=== PATIENT | female | born 1965 | race Caucasian/White ===

== ENCOUNTER 2016-12-24 22:57 | Emergency (ER) | payer OTHER ==
[~2016-12-24 22:57] MED LIST: CITA-48 PO; DEPO150I IM; DOXE50CA3 PO; DOXY100T PO; EPIP0.3I IM; GABA100C4 PO; HYDR50TA94 PO; IPRAAER INH; LAMO150 PO; PRAZ5CAP16 PO; PRED50 PO; SALI1SPR8; SIMV20 PO
[2016-12-24 23:00] VITALS: BP 124/75; PULSE 83; RESP 18; TEMP 99.1; O2SAT 98
== END 2016-12-24 23:40 | disposition left against medical advice (07) ==
LOC: NED 22:57
DX: Z53.21 Procedure and treatment not carried out due to patient leaving prior to being seen by health care provider (principal)
CPT/HCPCS: 99281

== ENCOUNTER 2017-09-16 21:26 | Emergency (ER) | payer OTHER ==
[~2017-09-16] VITALS: Ht 162.6 cm; Wt 72.5 kg
[2017-09-16 23:01] VITALS: BP 131/70; PULSE 98; RESP 16; TEMP 98.6; O2SAT 97
[2017-09-16] MEDS ORDERED: LIDOCAINE 1%/EPINEPHrine 1:100,000 SOLN 20 ML VIAL INFIL ONE (23:15)
[2017-09-16] MEDS ORDERED: LIDOCAINE 1%/EPINEPHrine 1:100,000 SOLN 30 ML VIAL ONE (23:16)
--- NOTE | 2017-09-16 23:16 | PD ---
HPI Chief Complaint: Skin Problem Time Seen by Provider: 23:05 Travel History International Travel<30 days: No Contact w/Intl Traveler<30days: No Traveled to known affect area: No History of Present Illness HPI 52-year-old left-hand dominant female presents for evaluation of area of skin redness and soft tissue swelling on the volar left wrist. Symptoms started yesterday, worsened today, prompted evaluation. She tried drinking at home with a razor but was unsuccessful. She reports a throbbing sensation which is worse with palpation. Denies any drainage. She does not recall any injuries, puncture wounds, bug bites the left wrist. She does have a remote history of IV drug use but reports that she has not used in 4-5 years. Denies fevers or chills. She has no other complaints at this time. PFSH Past Medical History Arthritis: Yes (OA) Cancer: Yes (CERVICAL CANCER) Cardiovascular Problems: Yes (HYPOTENSION) Chemotherapy: Yes Cerebrovascular Accident: Yes (2009) Diminished Hearing: No Insomnia: Yes Musculoskeletal: Yes (CHRONIC BACK PAIN AND LIMB ACHES) Psychiatric: Yes (CLUSTER B PERSONALITY DISORDER, SOMATIZATION, PTSD) Reproductive: Yes (H/O MALIGNANT NEOPLASM GENITAL ORGANS) Respiratory: Yes (ASTHMA) Integumentary: Yes (H/O OPIOD DEPENDANCE AND COCCAINE ABUSE) Immunizations Current: Yes Migraines: Yes ?: Not : 2 Para: 2 Past Surgical History Abdominal Surgery: Yes (peritonitis) Appendectomy: Yes Section: Yes (X2) Social History Alcohol Use: Yes (RARELY) Tobacco Use: Yes (3/4 PPD) Substance Use: No (HX) Allergies-Medications (Allergen,Severity, Reaction): Coded Allergies: Influenza Virus Vaccines (Unverified Allergy, Severe, Anaphylaxis, 09/16/17 ) acetaminophen (Unverified Allergy, Severe, Cardiac Arrest, 09/16/17) atropine (Unverified Allergy, Severe, VOMITING, 09/16/17) basil (Unverified Allergy, Severe, Anaphylaxis, 09/16/17) cephalexin (Verified Allergy, Severe, 09/16/17) PAIN hyoscyamine (Unverified Allergy, Severe, VOMITING, 09/16/17) levetiracetam (Unverified Allergy, Severe, Nausea/Vomiting, 09/16/17) levofloxacin (Unverified Allergy, Severe, Rash, 09/16/17) ondansetron (Unverified Allergy, Severe, ABD, 09/16/17) paroxetine (Unverified Allergy, Severe, Rash, 09/16/17) phenobarbital (Unverified Allergy, Severe, VOMITING, 09/16/17) pneumococcal vaccine (Unverified Allergy, Severe, 09/16/17) propoxyphene (Unverified Allergy, Severe, Cardiac Arrest, 09/16/17) scopolamine (Unverified Allergy, Severe, VOMITING, 09/16/17) tea tree (Unverified Allergy, Severe, 09/16/17) azithromycin (Unverified Allergy, Intermediate, URTICARIA, 09/16/17) celecoxib (Unverified Allergy, Intermediate, 09/16/17) metronidazole (Unverified Allergy, Intermediate, Rash, 09/16/17) egg (Unverified Allergy, Unknown, 09/16/17) Reported Meds & Prescriptions Reported Meds & Active Scripts Active Clindamycin (Clindamycin HCl) 300 Mg Cap 300 Mg PO TID 10 Days Bactrim DS (Sulfamethoxazole-Trimethoprim) 800-160 Mg Tab 1 Tab PO BID Doxycycline Hyclate 100 mg (Doxycycline Hyclate) 100 Mg Tab 100 Mg PO BID Deltasone 50 Mg Tab (Prednisone) 50 Mg Tab 50 Mg PO DAILY Epipen (Epinephrine HCl) 0.3 Mg Inj 0.3 Mg IM ONCE GIVE IM IN THIGH, MAY REPEAT IF NEEDED Reported Citalopram Hydrobromide 40 Mg Tab 40 Mg PO DAILY [place] (Sodium Chloride) 45 Ml Naspr 2 [place] NA TID Combivent Respimat (Albuterol/Ipratropium) Respimat Aer 1 Puff INH QID PRN Depo-Provera Contraceptive (Medroxyprogesterone Acetate) 150 Mg/Ml Susp 150 Mg IM Q90D Simvastatin 20 mg (Simvastatin) 20 Mg Tab 20 Mg PO HS Lamictal (Lamotrigine) 150 Mg Tab 300 Mg PO HS Hydroxyzine Hcl (Hydroxyzine HCl) 50 Mg Tab 50 Mg PO TID PRN Prazosin Hcl (Prazosin HCl) 5 Mg Cap 5 Mg PO HS Doxepin 50 mg (Doxepin HCl) 50 Mg Cap 50 Mg PO HS PRN Gabapentin 100 Mg Cap 200 Mg PO TID Review of Systems Except as stated in HPI: all other systems reviewed are Neg Physical Exam Narrative GENERAL: Well-nourished female no acute distress SKIN: Warm and dry. 2 cm fluctuant abscess noted to the left wrist. Fresh needle track philippe are noted in both arms. There is no significant erythema or proximal streaking or axillary lymphadenopathy. HEAD: Atraumatic. Normocephalic. EYES: Pupils equal and round. No scleral icterus. No injection or drainage. ENT: No nasal bleeding or discharge. Mucous membranes pink and moist. NECK: Trachea midline. No JVD. CARDIOVASCULAR: Regular rate and rhythm. No murmur appreciated. RESPIRATORY: No accessory muscle use. Clear to auscultation. Breath sounds equal bilaterally. MUSCULOSKELETAL: No obvious deformities. Skin as noted above. NEUROLOGICAL: Awake and alert. No obvious cranial nerve deficits. Motor grossly within normal limits. Normal speech. Data Data Last Documented VS Vital Signs Date Time Temp Pulse Resp B/P (MAP) Pulse Ox O2 Delivery O2 Flow Rate FiO2 09/16/17 23:01 98.6 98 16 131/70 (90) 97 Room Air Orders Orders Lidocai-Epi 1%-1:100,000 Inj (Xylocaine- (09/16/17 23:15) Wound Culture And Gram Stain (09/16/17 23:09) Lidocai-Epi 1%-1:100,000 Inj (Xylocaine- (09/16/17 23:16) Clindamycin (Cleocin) (09/16/17 23:45) Sulfamet-Trimeth Ds 800-160 Mg (Bactrim (09/16/17 23:45) Ed Discharge Order (09/16/17 23:31) [facility] Medical Decision Making Medical Screen Exam Complete: Yes Emergency Medical Condition: Yes Medical Record Reviewed: Yes Differential Diagnosis Abscess, cellulitis, infected cyst, lymphangitis Narrative Course Examination reveals a cutaneous abscess on the volar aspect of the left wrist. Plan is for incision and drainage, she verbally consents. Wound culture will be obtained. She will be started empirically on Bactrim and clindamycin. Procedures Procedure Narrative INCISION AND DRAINAGE OF ABSCESS: The area was prepped and was sterilely draped. A subcutaneous wheal of 1% Xylocaine with epinephrine with a total number 6 mL was used to anesthetize the area. The area was properly anesthetized. A number 11 scalpel was used to make a 1.5-cm incision across the area of the abscess. Cultures were obtained. The abscess was drained an irrigated with normal saline. Diagnosis Primary Impression: Abscess of left arm Additional Instructions: Warm compresses or soaks several times a day 15 minutes at a time. Antibiotics as prescribed. Return for evidence of worsening infection. Med/Other Pt SpecificInfo: Prescription(s) given, Wound Care Scripts Clindamycin (Clindamycin) 300 Mg Cap 300 MG PO TID for Infection for 10 Days, #30 CAP 0 Refills Prov: Amber Booker MD 09/16/17 Sulfamethoxazole-Trimethoprim (Bactrim DS) 800-160 Mg Tab 1 TAB PO BID for Infection, #20 TAB 0 Refills Prov: Amber Booker MD 09/16/17 Disposition: 01 DISCHARGE HOME Condition: Stable Arnaldo Guevara Sep 16, 2017 23:16
[2017-09-16] MEDS ORDERED: BACT800T5 PO (23:32)
[2017-09-16] MEDS ORDERED: CLIN300C5 PO (23:32)
[2017-09-16] MEDS ORDERED: SULFAMETHOXAZOLE-TRIMETHOPRIM DS 800-160 MG TAB PO ONE (23:45)
[2017-09-16] MEDS ORDERED: CLINDAMYCIN 150 MG CAP PO ONE (23:45)
== END 2017-09-16 23:47 | disposition home or self-care (01) ==
LOC: NEPD 21:26
DX: L02.414 Cutaneous abscess of left upper limb (principal); B95.61 Methicillin susceptible Staphylococcus aureus infection as the cause of diseases classified elsewhere; M19.90 Unspecified osteoarthritis, unspecified site; J45.909 Unspecified asthma, uncomplicated; F17.210 Nicotine dependence, cigarettes, uncomplicated; Z86.73 Personal history of transient ischemic attack (TIA), and cerebral infarction without residual deficits; Z85.41 Personal history of malignant neoplasm of cervix uteri; Z88.8 Allergy status to other drugs, medicaments and biological substances; Z79.899 Other long term (current) drug therapy
CPT/HCPCS: 10060; 86403; 87070; 87186; 87205